=== PATIENT | male | born 1955 | race African-American/Black ===

== ENCOUNTER 2016-05-05 13:31 | Inpatient (IN) | payer OTHER ==
[2016-05-05] VITALS (8 sets, daily range): BP systolic 70–115; BP diastolic 50–75
[~2016-05-05] VITALS: Ht 180.3 cm; Wt 71.0 kg
[~2016-05-05 13:31] MED LIST: CHOL10003 PO; CYCL10TA2 PO; DOCU100C5 PO; FERR-26 PO; FURO20TA3 PO; LACT20SO PO; LIDO700A4 TP; MAGN400T3 PO; MORP30TA3 PO; MULT1TAB52 PO; OXYC10TA PO; OXYC5TAB PO; PROP10TA PO; SPIR25TA3 PO
[2016-05-05] MEDS ORDERED: ONDANSETRON PF 4 MG/2 ML VIAL. IV ONE (14:00)
[2016-05-05] MEDS ORDERED: IV NORMAL SALINE 1000ML BAG 500 ML IV ONE (14:00)
[2016-05-05 14:03] LABS: BASO % 0 % (0-3); EOS % 0 % (0-3); HEMOGLOBIN 13.6 g/dL (13.0-17.5); LYMPH # 0.5 x10^3/uL (1.0-4.8); LYMPH % 5 % (24-48); MEAN CORPUSCULAR HEMOGLOBIN 29 pg (25-35); MEAN CORPUSCULAR HGB CONC 33 g/dL (31-37); MEAN CORPUSCULAR VOLUME 87 fL (79-100); MONO % 10 % (0-9); NEUT % 85 % (31-73); PLATELET COUNT 129 x10^3/uL (140-400); RED CELL DISTRIBUTION WIDTH 16.4 % (11.5-14.5); WHITE BLOOD COUNT 10.1 x10^3/uL (4.0-11.0)
--- NOTE | 2016-05-05 14:09 | PHYS DOC ---
Past Medical History Past Medical History: Anemia, Hypertension, Hepatitis, Liver Disease Additional Past Medical Histor: ETOH cirrhosis, lumbar fx, ESOPHAGEAL VARICES, PANC/THROMB-OCYTOPEN Past Surgical History: Other Additional Past Surgical Histo: paracentesis -- UNKNOWN Alcohol Use: Sober Drug Use: None Adult General Chief Complaint Chief Complaint: SHORTNESS OF BREATH HPI HPI Patient is a 61 year old male who presents with shortness of breath and hypoxemia. According to EMS he was 80% on 4 L upon their arrival at the detention, he is on hospice but is full code. According to his records she has a history of hepatic failure, viral hepatitis, alcohol cirrhosis of the liver, portal hypertension, pancytopenia, thrombocytopenia, generalized edema. Patient is unresponsive at this time and able to contribute to any history. I did speak with his nurse at his facility was stated he's been refusing his lactulose for the last 2 days and becoming more altered every day. Review of Systems Review of Systems Unable to obtain review of systems Current Medications Current Medications Current Medications Medications (Trade) Dose Ordered Sig/Mina Start Time Stop Time Status Last Admin Dose Admin Ceftriaxone Sodium (Rocephin 1gm Ivpb For Omni) 50 ml @ 100 mls/hr 1X ONCE 05/05/16 15:15 05/05/16 15:44 Lactulose 30 gm 1X STAT 05/05/16 14:45 05/05/16 14:47 DC Ondansetron HCl (Zofran) 4 mg 1X ONCE 05/05/16 14:00 05/05/16 14:01 DC 05/05/16 14:04 4 MG Ondansetron HCl 4 mg 4 mg PRN Q8HRS PRN 05/05/16 15:00 05/06/16 14:59 Sodium Chloride (Iv Sodium Chloride 0.9% 1000ml Bag) 500 ml @ 1,000 mls/hr 1X ONCE 05/05/16 14:00 05/05/16 14:29 DC 05/05/16 14:02 1,000 MLS/HR Allergies Allergies Allergies Coded Allergies Type Severity Reaction Last Updated Verified No Known Drug Allergies 03/15/16 No Physical Exam Physical Exam Constitutional: Cachectic appearing in moderate distress. [] HENT: Atraumatic, bilateral external ears normal, oropharynx moist, no oral exudates, nose normal. [] Eyes: PERRLA, EOMI, scleral icterus, no discharge. [] Neck: no stridor. [] Cardiovascular:Heart rate regular rhythm, no murmur [] Lungs & Thorax: Bilateral breath sounds decreased Abdomen: Bowel sounds normal, abdomen distended, line in place in the right peritoneal area Skin: Warm, dry, no erythema, no rash. [] Back: No tenderness, no CVA tenderness. [] Extremities: No tenderness, no cyanosis, no clubbing Neurologic: Unresponsive Current Patient Data Vital Signs Vital Signs Date Time Temp Pulse Resp B/P Pulse Ox O2 Delivery O2 Flow Rate FiO2 05/05/16 15:00 73 118/74 94 BiPAP/CPAP 05/05/16 13:50 10 05/05/16 13:31 96.9 32 96.9 Lab Values Laboratory Tests Test 05/05/16 13:40 05/05/16 14:02 05/05/16 14:40 White Blood Count 10.1x10^3/uL (4.0-11.0) Red Blood Count 4.70x10^6/uL (4.30-5.70) Hemoglobin 13.6g/dL (13.0-17.5) Hematocrit 41.0% (39.0-53.0) Mean Corpuscular Volume 87fL (79-100) Mean Corpuscular Hemoglobin 29pg (25-35) Mean Corpuscular Hemoglobin Concent 33g/dL (31-37) Red Cell Distribution Width 16.4% (11.5-14.5) H Platelet Count 129x10^3/uL (140-400) #L Neutrophils (%) (Auto) 85% (31-73) H Lymphocytes (%) (Auto) 5% (24-48) L Monocytes (%) (Auto) 10% (0-9) H Eosinophils (%) (Auto) 0% (0-3) Basophils (%) (Auto) 0% (0-3) Neutrophils # (Auto) 8.6x10^3uL (1.8-7.7) H Lymphocytes # (Auto) 0.5x10^3/uL (1.0-4.8) L Monocytes # (Auto) 1.0x10^3/uL (0.0-1.1) Eosinophils # (Auto) 0.0x10^3/uL (0.0-0.7) Basophils # (Auto) 0.0x10^3/uL (0.0-0.2) Segmented Neutrophils % 77% (35-66) H Band Neutrophils % 9% (0-9) Lymphocytes % 8% (24-48) L Monocytes % 6% (0-10) Toxic Granulation Slight Platelet Estimate Adequate (ADEQUATE) Poikilocytosis Marked Anisocytosis Slight Ovalocytes Few João Cells Mod Schistocytes Mod RBC Morphology Bizarre Forms Few Prothrombin Time 19.1SEC (11.7-14.0) H Prothrombin Time INR 1.7 (0.8-1.1) H Magnesium Level 1.8mg/dL (1.8-2.4) Total Bilirubin 4.0mg/dL (0.2-1.0) H Direct Bilirubin 1.4mg/dL (0.0-0.2) H Aspartate Amino Transferase (AST) 162U/L (15-37) H Alanine Aminotransferase (ALT) 36U/L (16-63) Alkaline Phosphatase 222U/L (46-116) H Ammonia 349mcmol/L (11-34) H Creatine Kinase 103U/L (39-308) Creatine Kinase MB (Mass) 1.5ng/mL (0.0-3.6) Creatine Kinase MB Relative Index 1.5% (0-4) Troponin I Quantitative < 0.017ng/mL (0.000-0.055) KJ-Pto-Q-Type Natriuretic Peptide 111pg/mL (0-124) Total Protein 6.6g/dL (6.4-8.2) Albumin 2.1g/dL (3.4-5.0) L Lipase 55U/L (73-393) L Urine Collection Type Unknown Urine Color Jayda Urine Clarity Clear Urine pH 6.0 Urine Specific [place] 1.020 Urine Protein Negativemg/dL (NEG-TRACE) Urine Glucose (UA) Negativemg/dL (NEG) Urine Ketones (Stick) Tracemg/dL (NEG) Urine Blood Negative (NEG) Urine Nitrite Negative (NEG) Urine Bilirubin Moderate (NEG) Urine Urobilinogen Dipstick >=8.0mg/dL (0.2 mg/dL) Urine Leukocyte Esterase Trace (NEG) Urine RBC 0/HPF (0-2) Urine WBC 0/HPF (0-4) Urine Bacteria 0/HPF (0-FEW) Urine Hyaline Casts Moderate/HPF Urine Mucus Mod/LPF O2 Saturation 96% (92-99) Arterial Blood pH 7.51 (7.35-7.45) H Arterial Blood pCO2 at Patient Temp 32mmHg (35-46) L Arterial Blood pO2 at Patient Temp 79mmHg (65-108) Arterial Blood HCO3 25mmol/L (21-28) Arterial Blood Base Excess 2mmol/L (-3-3) FiO2 60 Laboratory Tests 05/05/16 13:40 EKG EKG EKG shows normal sinus rhythm with rate 77 beats were without any ST elevations or T-wave inversion in aVL, left axis deviation, incomplete right bundle branch block, QTC 445 ms, as interpreted by me. Radiology/Procedures Radiology/Procedures [facility] [address] [place] [address] IMAGING REPORT Signed PATIENT: TARAN MURILLO ACCOUNT: [id number] : 1955 LOCATION: ER AGE: 61 SEX: M EXAM STATUS: REG ER ORD. PHYSICIAN: JAIDEN PASTOR MD REASON: soa PROCEDURE: PORTABLE CHEST 1V Exam performed: One view chest. Indication: shortness of air Date of Service: 05/05/2016 3:36 PM Comparison: None available. Single AP upright portable view chest findings: Cardiomediastinal silhouette is within limits of normal. No acute infiltrates, effusion or pneumothorax is detected. The bony structures are normal. Impression: No acute cardiopulmonary process is detected. DICTATED and SIGNED BY: JAJA ORTIZ MD DATE: 05/05/16 1430 CC: JAIDEN PASTOR MD; RAND ARMENDARIZ MD ~ Impressions: Respiratory failure End stage liver disease Hyperammoniamia Course & Med Decision Making Course & Med Decision Making Pertinent Labs and Imaging studies reviewed. (See chart for details) Patient arrived hypoxic and requiring nonrebreather. He is placed on BiPAP and was hypotensive received 500 mL of normal saline. His breathing and blood pressure stabilized. Labs shows a pneumonia 300. I've ordered lactulose however he is nonresponsive and aspiration risk. Since he has ascites of wood and started Rocephin and case he might have SBP. He is admitted to the hospitalist, the patient is in critical condition at this time. The primary care physician did speak with family who does not want him intubated and are on their way to see him now. Spoke with the hospitalist who recommends putting down an NG tube for his lactulose. 55 minutes of critical care time was used on this patient excluding procedures. Dragon Disclaimer Dragon Disclaimer This electronic medical record was generated, in whole or in part, using a voice recognition dictation system. Departure Departure Impression: Primary Impression: Respiratory failure Disposition: ADMITTED INPATIENT Admitting Physician: Emilio Montilla Condition: GUARDED Referrals: RAND ARMENDARIZ MD (PCP) JAIDEN PASTOR MD May 05, 2016 14:08
[2016-05-05 14:15] LABS: BILIRUBIN,URINE MODERATE (NEG); GLUCOSE,URINE NEGATIVE (NEG); NITRITE,URINE NEGATIVE (NEG); PROTEIN,URINE NEGATIVE (NEG-TRACE); UROBILINOGEN,URINE >=8.0 mg/dL (0.2 mg/dL)
[2016-05-05 14:16] LABS: INR 1.7 (0.8-1.1); PROTHROMBIN TIME PATIENT 19.1 SEC (11.7-14.0)
[2016-05-05 14:23] LABS: ALBUMIN 2.1 g/dL (3.4-5.0); DIRECT BILIRUBIN 1.4 mg/dL (0.0-0.2); MAGNESIUM 1.8 mg/dL (1.8-2.4); TOTAL PROTEIN 6.6 g/dL (6.4-8.2)
[2016-05-05 14:23] LABS: BACTERIA,URINE 0 /HPF (0-FEW); RBC,URINE 0 /HPF (0-2); WBC,URINE 0 /HPF (0-4)
--- NOTE | 2016-05-05 14:28 | EKG ---
[facility] [address] [place] [address] Test Date: 2016-05-05 Test Time: 14:22:58 Pat Name: TARAN MURILLO Department: Room: Gender: M Horse Groomer: : 1955 Requested By: JAIDEN PASTOR Order Number: [id number] Reading MD: Carlito Cowart Measurements Intervals [place] Rate: 77 P: 90 LA: 146 QRS: -73 QRSD: 92 T: 66 QT: 392 QTc: 445 Interpretive Statements SINUS RHYTHM ABNORMAL LEFT AXIS DEVIATION R-S TRANSITION ZONE IN V LEADS DISPLACED TO THE RIGHT LEFT ANTERIOR FASCICULAR BLOCK INCOMPLETE RIGHT BUNDLE BRANCH BLOCK RI6.01 Unconfirmed report No previous ECG available for comparison Electronically Signed On 05-09-2016 13:49:26 FOOD SERVICE MANAGER by Carlito Cowart
--- NOTE | 2016-05-05 14:33 | RAD ---
Exam performed: One view chest. Indication: shortness of air Date of Service: 05/05/2016 3:36 PM Comparison: None available. Single AP upright portable view chest findings: Cardiomediastinal silhouette is within limits of normal. No acute infiltrates, effusion or pneumothorax is detected. The bony structures are normal. Impression: No acute cardiopulmonary process is detected.
[2016-05-05 14:45] LABS: CKMB INDEX 1.5 % (0-4); CKMB MASS 1.5 ng/mL (0.0-3.6)
[2016-05-05] MEDS ORDERED: LACTULOSE 20 GM/30 ML SOLUTION. PO STA (14:45)
[2016-05-05 14:54] LABS: ANISOCYTOSIS SLIGHT; PLT ESTIMATE ADEQUATE (ADEQUATE)
[2016-05-05 14:56] LABS: BURR CELLS MOD; OVALOCYTES FEW; SCHISTOCYTES MOD
[2016-05-05 14:58] LABS: POIKILOCYTOSIS MARKED; TOXIC GRANULATION SLIGHT
[2016-05-05] MEDS ORDERED: ONDANSETRON PF 4 MG/2 ML VIAL. IV PRN (15:00)
[2016-05-05 15:01] LABS: HCO3 ABG 25 mmol/L (21-28); PCO2 ABG 32 mmHg (35-46); PH ABG 7.51 (7.35-7.45); PO2 ABG 79 mmHg (65-108); SAT O2 ABG 96 % (92-99)
[2016-05-05 15:02] LABS: FIO2 ABG 60
[2016-05-05] MEDS ORDERED: CEFTRIAXONE 1GM IVPB FOR OMNI 50 ML IV ONE (15:15)
--- NOTE | 2016-05-05 15:25 | ACF ---
Admission Forms Criteria RESPIRATORY FAILURE [facility] Clinical Indications for Admission to Inpatient Care (Place 'X' for any and all applicable criteria): Hospital admission is needed for appropriate care of the patient because of acute respiratory failure or insufficiency as indicated by ANY ONE of the following(1)(2)(3)(4)(5)(6)(7)(8): [X]I. Mechanical ventilation needed (acute invasive or noninvasive) [ ]II. Severe ventilation deficit as indicated by ANY ONE of the following (9) [ ]a) Respiratory acidosis (pH less than 7.32 and partial pressure of carbon dioxide greater than 40 mm Hg (5.3 kPa)) [ ]b) Partial pressure of carbon dioxide greater than 44 mm Hg (5.9 kPa ) (new) [ ]c) Airflow measurements less than 25% of predicted (eg, peak expiratory flow rate less than 100 L/minute) [ ]d) Forced vital capacity less than 15 mL/kg of ideal body weight, or 50% decrease in vital capacity from baseline [ ]III. Noncardiac pulmonary edema not resolving with rapid emergency treatment (8) [ ]IV. Severe respiratory distress as indicated by ANY ONE of the following: [ ]a) Severe tachypnea (respiratory rate greater than 30, greater than 45 for 6-month-old, greater than 60 for ) [ ]b) Severe hypoxemia (partial pressure of oxygen less than 50 mm Hg ( 6.7 kPa) on greater than 50% oxygen or partial pressure of oxygen to FIO2 ratio less than 200) [ ]c) Mental status deterioration from respiratory disease [ ]V. Airway obstruction or inadequate protection [A](10)(11) The original [employer] content created by [employer] has been revised. The portions of the content which have been revised are identified through the use of italic text or in bold, and [employer] has neither reviewed nor approved the modified material. All other unmodified content is copyright [employer]. Please see references footnoted in the original [employer] edition 2016 Admission Criteria Met?: Yes CECILLE HERNÁNDEZ May 05, 2016 15:25
--- NOTE | 2016-05-05 17:19 | RAD ---
Portable chest, 05/05/2016: History: Verify NG tube placement A supine view the upper abdomen demonstrates an NG tube extending into the antral region of the stomach. There is moderate gaseous distention of the stomach. Gas is present in other loops of large and small bowel in a nonspecific pattern. Radiopaque gallstones are again noted in the right upper quadrant. IMPRESSION: The NG tube extends into the distal aspect of the stomach
[2016-05-05] MEDS ORDERED: AA 4.25%/CALCIUM/LYTES/D5W 1,000 ML IV PRN (17:30)
--- NOTE | 2016-05-05 17:32 | PDOC1 ---
History and Physical Family History Family History: Other Social History ALCOHOL: other Drugs: None Current Problem List Problem List Problems Medical Problems: (1) Respiratory failure Status: Acute Current Medications Current Medications Current Medications Medications (Trade) Dose Ordered Sig/Mina Start Time Stop Time Status Last Admin Dose Admin Amino Acids/ Electrolytes/ Dextrose (Clinimix E 4.25%-5% Solution) 1,000 ml @ 80 mls/hr [id number] PRN 05/05/16 17:30 Ceftriaxone Sodium 50 ml @ 100 mls/hr 1X ONCE 05/05/16 15:15 05/05/16 15:44 DC Lactulose 30 gm 1X STAT 05/05/16 14:45 05/05/16 14:47 DC Ondansetron HCl (Zofran) 4 mg 1X ONCE 05/05/16 14:00 05/05/16 14:01 DC 05/05/16 14:04 4 MG Ondansetron HCl 4 mg 4 mg PRN Q8HRS PRN 05/05/16 15:00 05/06/16 14:59 Sodium Chloride (Iv Sodium Chloride 0.9% 1000ml Bag) 500 ml @ 1,000 mls/hr 1X ONCE 05/05/16 14:00 05/05/16 14:29 DC 05/05/16 14:02 1,000 MLS/HR Allergies Allergies Allergies Coded Allergies Type Severity Reaction Last Updated Verified No Known Drug Allergies 03/15/16 No ROS Review of System not able to obtain due to acuity of his condition Physical Exam Physical Exam GEN.: on Bipap, opening eyes but not responding to questions. HEENT: Head is normocephalic, atraumatic, jaundice NECK: Supple. no jvd LUNGS: Clear to auscultation. HEART: RRR, S1, S2 present. Peripheral pulses intact ABDOMEN: distended, BS EXTREMITIES: mild edema, with clubbing NEUROLOGIC: encephalopathic PSYCHIATRIC: SKIN: dry skin, Vitals Vitals Vital Signs Date Time Temp Pulse Resp B/P Pulse Ox O2 Delivery O2 Flow Rate FiO2 05/05/16 17:00 100 BiPAP/CPAP 05/05/16 15:30 75 116/71 05/05/16 13:50 10 05/05/16 13:31 96.9 32 96.9 Labs Labs Laboratory Tests Test 05/05/16 13:40 05/05/16 14:02 05/05/16 14:40 White Blood Count 10.1x10^3/uL (4.0-11.0) Red Blood Count 4.70x10^6/uL (4.30-5.70) Hemoglobin 13.6g/dL (13.0-17.5) Hematocrit 41.0% (39.0-53.0) Mean Corpuscular Volume 87fL (79-100) Mean Corpuscular Hemoglobin 29pg (25-35) Mean Corpuscular Hemoglobin Concent 33g/dL (31-37) Red Cell Distribution Width 16.4% (11.5-14.5) Platelet Count 129x10^3/uL (140-400) Neutrophils (%) (Auto) 85% (31-73) Lymphocytes (%) (Auto) 5% (24-48) Monocytes (%) (Auto) 10% (0-9) Eosinophils (%) (Auto) 0% (0-3) Basophils (%) (Auto) 0% (0-3) Neutrophils # (Auto) 8.6x10^3uL (1.8-7.7) Lymphocytes # (Auto) 0.5x10^3/uL (1.0-4.8) Monocytes # (Auto) 1.0x10^3/uL (0.0-1.1) Eosinophils # (Auto) 0.0x10^3/uL (0.0-0.7) Basophils # (Auto) 0.0x10^3/uL (0.0-0.2) Segmented Neutrophils % 77% (35-66) Band Neutrophils % 9% (0-9) Lymphocytes % 8% (24-48) Monocytes % 6% (0-10) Toxic Granulation Slight Platelet Estimate Adequate (ADEQUATE) Poikilocytosis Marked Anisocytosis Slight Ovalocytes Few João Cells Mod Schistocytes Mod RBC Morphology Bizarre Forms Few Prothrombin Time 19.1SEC (11.7-14.0) Prothromb Time International Ratio 1.7 (0.8-1.1) Magnesium Level 1.8mg/dL (1.8-2.4) Total Bilirubin 4.0mg/dL (0.2-1.0) Direct Bilirubin 1.4mg/dL (0.0-0.2) Aspartate Amino Transf (AST/SGOT) 162U/L (15-37) Alanine Aminotransferase (ALT/SGPT) 36U/L (16-63) Alkaline Phosphatase 222U/L (46-116) Ammonia 349mcmol/L (11-34) Creatine Kinase 103U/L (39-308) Creatine Kinase MB (Mass) 1.5ng/mL (0.0-3.6) Creatine Kinase MB Relative Index 1.5% (0-4) Troponin I Quantitative < 0.017ng/mL (0.000-0.055) ZI-Til-Q-Type Natriuretic Peptide 111pg/mL (0-124) Total Protein 6.6g/dL (6.4-8.2) Albumin 2.1g/dL (3.4-5.0) Lipase 55U/L (73-393) Urine Collection Type Unknown Urine Color Jayda Urine Clarity Clear Urine pH 6.0 Urine Specific [place] 1.020 Urine Protein Negativemg/dL (NEG-TRACE) Urine Glucose (UA) Negativemg/dL (NEG) Urine Ketones (Stick) Tracemg/dL (NEG) Urine Blood Negative (NEG) Urine Nitrite Negative (NEG) Urine Bilirubin Moderate (NEG) Urine Urobilinogen Dipstick >=8.0mg/dL (0.2 mg/dL) Urine Leukocyte Esterase Trace (NEG) Urine RBC 0/HPF (0-2) Urine WBC 0/HPF (0-4) Urine Bacteria 0/HPF (0-FEW) Urine Hyaline Casts Moderate/HPF Urine Mucus Mod/LPF O2 Saturation 96% (92-99) Arterial Blood pH 7.51 (7.35-7.45) Arterial Blood pCO2 at Patient Temp 32mmHg (35-46) Arterial Blood pO2 at Patient Temp 79mmHg (65-108) Arterial Blood HCO3 25mmol/L (21-28) Arterial Blood Base Excess 2mmol/L (-3-3) FiO2 60 Laboratory Tests Test 05/05/16 13:40 05/05/16 14:02 05/05/16 14:40 White Blood Count 10.1x10^3/uL (4.0-11.0) Red Blood Count 4.70x10^6/uL (4.30-5.70) Hemoglobin 13.6g/dL (13.0-17.5) Hematocrit 41.0% (39.0-53.0) Mean Corpuscular Volume 87fL (79-100) Mean Corpuscular Hemoglobin 29pg (25-35) Mean Corpuscular Hemoglobin Concent 33g/dL (31-37) Red Cell Distribution Width 16.4% (11.5-14.5) Platelet Count 129x10^3/uL (140-400) Neutrophils (%) (Auto) 85% (31-73) Lymphocytes (%) (Auto) 5% (24-48) Monocytes (%) (Auto) 10% (0-9) Eosinophils (%) (Auto) 0% (0-3) Basophils (%) (Auto) 0% (0-3) Neutrophils # (Auto) 8.6x10^3uL (1.8-7.7) Lymphocytes # (Auto) 0.5x10^3/uL (1.0-4.8) Monocytes # (Auto) 1.0x10^3/uL (0.0-1.1) Eosinophils # (Auto) 0.0x10^3/uL (0.0-0.7) Basophils # (Auto) 0.0x10^3/uL (0.0-0.2) Segmented Neutrophils % 77% (35-66) Band Neutrophils % 9% (0-9) Lymphocytes % 8% (24-48) Monocytes % 6% (0-10) Toxic Granulation Slight Platelet Estimate Adequate (ADEQUATE) Poikilocytosis Marked Anisocytosis Slight Ovalocytes Few João Cells Mod Schistocytes Mod RBC Morphology Bizarre Forms Few Prothrombin Time 19.1SEC (11.7-14.0) Prothromb Time International Ratio 1.7 (0.8-1.1) Magnesium Level 1.8mg/dL (1.8-2.4) Total Bilirubin 4.0mg/dL (0.2-1.0) Direct Bilirubin 1.4mg/dL (0.0-0.2) Aspartate Amino Transf (AST/SGOT) 162U/L (15-37) Alanine Aminotransferase (ALT/SGPT) 36U/L (16-63) Alkaline Phosphatase 222U/L (46-116) Ammonia 349mcmol/L (11-34) Creatine Kinase 103U/L (39-308) Creatine Kinase MB (Mass) 1.5ng/mL (0.0-3.6) Creatine Kinase MB Relative Index 1.5% (0-4) Troponin I Quantitative < 0.017ng/mL (0.000-0.055) NA-Ttn-B-Type Natriuretic Peptide 111pg/mL (0-124) Total Protein 6.6g/dL (6.4-8.2) Albumin 2.1g/dL (3.4-5.0) Lipase 55U/L (73-393) Urine Collection Type Unknown Urine Color Jayda Urine Clarity Clear Urine pH 6.0 Urine Specific [place] 1.020 Urine Protein Negativemg/dL (NEG-TRACE) Urine Glucose (UA) Negativemg/dL (NEG) Urine Ketones (Stick) Tracemg/dL (NEG) Urine Blood Negative (NEG) Urine Nitrite Negative (NEG) Urine Bilirubin Moderate (NEG) Urine Urobilinogen Dipstick >=8.0mg/dL (0.2 mg/dL) Urine Leukocyte Esterase Trace (NEG) Urine RBC 0/HPF (0-2) Urine WBC 0/HPF (0-4) Urine Bacteria 0/HPF (0-FEW) Urine Hyaline Casts Moderate/HPF Urine Mucus Mod/LPF O2 Saturation 96% (92-99) Arterial Blood pH 7.51 (7.35-7.45) Arterial Blood pCO2 at Patient Temp 32mmHg (35-46) Arterial Blood pO2 at Patient Temp 79mmHg (65-108) Arterial Blood HCO3 25mmol/L (21-28) Arterial Blood Base Excess 2mmol/L (-3-3) FiO2 60 VTE Prophylaxis Ordered VTE Prophylaxis Devices: No VTE Pharmacological Prophylaxi: No NETTE CORONEL MD May 05, 2016 17:32
[2016-05-05 18:08] LABS: CALCIUM 9.3 mg/dL (8.5-10.1); CREATININE 0.8 mg/dL (0.7-1.3); GFR 118.5; POTASSIUM 5.4 mmol/L (3.5-5.1)
[2016-05-05] MEDS: MORPHINE SULFATE 2 MG/ML DISP.SYRIN. IV PRN ×2 (18:48→21:23)
[2016-05-05] MEDS: LORAZEPAM 2 MG/ML VIAL IV PRN (21:22)
--- NOTE | 2016-05-05 22:04 | ACF ---
Admission Forms Criteria Admission Criteria Met?: JOSE ALFREDO Vidal May 05, 2016 22:04
--- NOTE | 2016-05-05 22:56 | HP ---
ADMIT DATE: 05/05/2016 CHIEF COMPLAINT: Short of breath and altered mental status. HISTORY OF PRESENT ILLNESS: A 61-year-old male patient who was brought to the hospital for hypoxia from residential. Reportedly, the patient was in hospice for alcoholic liver disease and cirrhosis. Reportedly, he was not taking his lactulose for the last few days and he was encephalopathic upon his arrival. He has several comorbid conditions such as cirrhosis of the liver, portal hypertension, pancytopenia, thrombocytopenia and edema. I did speak with family members at bedside and mother is at bedside. She wants him to have DNR and DNI. She said she is the legal guardian; however, I could not verify at this time. The patient was here in the hospital one month ago; at that time, he was sent to hospice. At this time, I was told by the ER physician the patient is admitted to be treated medically and did not want any aggressive treatment. I would ask family members and palliative team to see together and discuss his goals of care. PAST MEDICAL HISTORY: Cirrhosis, lumbar fracture, esophageal varices, pancytopenia, anemia, hypertension, hepatitis, and liver disease. REVIEW OF SYSTEMS: Please see my electronic H and P. PHYSICAL EXAMINATION: Please see my electronic H and P. LABORATORY FINDINGS: WBC 10.2, hemoglobin is 13.6, MCV is 87, platelets 129. Magnesium 1.8, total bilirubin 4.0, direct bilirubin 1.4, AST is 162, ALT 36, alkaline phosphatase 222, ammonia is 349, albumin is 2.1, lipase is 55. Blood gas, pH is 7.51, pCO2 of 32, pO2 of 79, BiPAP is 25 FiO2 of 60. Urine, pH is 6, protein is negative, glucose is negative, blood is negative, nitrites negative, leukocyte esterase is trace. IMAGING STUDIES: On the chest x-ray, no acute cardiopulmonary process seen. KUB: NG tube extended to the distal aspect of the stomach. ASSESSMENT AND PLAN: 1. Hepatic encephalopathy, present on admission. 2. Respiratory failure, hypoxic. 3. End-stage liver disease with cirrhosis and esophageal varices. 4. Thrombocytopenia. 5. Anemia. 6. Portal hypertension. 7. History of lumbar L3 compression fracture. 8. Severe protein malnutrition. PLAN: 1. The patient is being admitted to Critical Care Unit. Currently, he is on BiPAP and I will repeat his ABGs and consult Pulmonology. 2. He was started on lactulose. We will monitor his response and recheck ammonia. 3. We will consult Gastroenterology. 4. Family members at bedside, mother and sister. All questions answered. 5. Also, I will consult palliative team for further discussion about goals of care. The patient's prognosis is very, very poor. I do not think his quality of life will change with aggressive management, I agree with hospice care. At this time, I will treat him medically. 6. I did discuss with mother and she wants him to have DNR/DNI. 7. Repeat labs, CBC and BMP in the a.m. and continue procalamine 80 mL per hour. 8. Awaiting gastroenterology and other sub-speciality input. No DVT prophylaxis due to thrombocytopenia. 9. Prognosis is very poor. 10. Critical care time is less than 30 minutes. NETTE CORONEL MD DR: ROLANDO/juan JOB#: [id number] / [id number] JASS
[2016-05-06] VITALS (19 sets, daily range): BP systolic 63–101; BP diastolic 45–61
[2016-05-06] MEDS: MORPHINE SULFATE 2 MG/ML DISP.SYRIN. IV PRN ×5 (00:07→22:19)
[2016-05-06] MEDS: LORAZEPAM 2 MG/ML VIAL IV PRN (04:03)
[2016-05-06 05:13] LABS: BASO % 0 % (0-3); EOS % 0 % (0-3); HEMATOCRIT 39.1 % (39.0-53.0); HEMOGLOBIN 12.9 g/dL (13.0-17.5); LYMPH # 0.5 x10^3/uL (1.0-4.8); LYMPH % 5 % (24-48); MEAN CORPUSCULAR HEMOGLOBIN 29 pg (25-35); MEAN CORPUSCULAR HGB CONC 33 g/dL (31-37); MEAN CORPUSCULAR VOLUME 88 fL (79-100); MONO % 9 % (0-9); NEUT % 85 % (31-73); PLATELET COUNT 99 x10^3/uL (140-400); RED BLOOD COUNT 4.46 x10^6/uL (4.30-5.70); RED CELL DISTRIBUTION WIDTH 16.5 % (11.5-14.5); WHITE BLOOD COUNT 10.6 x10^3/uL (4.0-11.0)
[2016-05-06 05:24] LABS: CALCIUM 9.2 mg/dL (8.5-10.1); CREATININE 1.3 mg/dL (0.7-1.3); GFR 67.7; POTASSIUM 5.1 mmol/L (3.5-5.1)
--- NOTE | 2016-05-06 09:05 | PDOC ---
Subjective: Subjective: See GI consult 03/16/16. Brought to ER 05/05/16 w/ hypoxia, AMS. On hospice w/ ESLD. On lactulose, Lasix, Aldactone at detention. Admitted to ICU. Objective: Objective: Ammonia 349, bili 4, Alk Phos 222, plt 99, INR 1.7. Vital Signs: Vital Signs Date Time Temp Pulse Resp B/P Pulse Ox O2 Delivery O2 Flow Rate FiO2 05/06/16 08:00 98.9 100 18 73/56 96 Nasal Cannula 2.0 98.9 Labs: Laboratory Tests Test 05/05/16 13:40 05/05/16 13:50 05/05/16 14:02 05/05/16 14:40 White Blood Count 10.1x10^3/uL Red Blood Count 4.70x10^6/uL Hemoglobin 13.6g/dL Hematocrit 41.0% Mean Corpuscular Volume 87fL Mean Corpuscular Hemoglobin 29pg Mean Corpuscular Hemoglobin Concent 33g/dL Red Cell Distribution Width 16.4% Platelet Count 129x10^3/uL Neutrophils (%) (Auto) 85% Lymphocytes (%) (Auto) 5% Monocytes (%) (Auto) 10% Eosinophils (%) (Auto) 0% Basophils (%) (Auto) 0% Neutrophils # (Auto) 8.6x10^3uL Lymphocytes # (Auto) 0.5x10^3/uL Monocytes # (Auto) 1.0x10^3/uL Eosinophils # (Auto) 0.0x10^3/uL Basophils # (Auto) 0.0x10^3/uL Segmented Neutrophils % 77% Band Neutrophils % 9% Lymphocytes % 8% Monocytes % 6% Toxic Granulation Slight Platelet Estimate Adequate Poikilocytosis Marked Anisocytosis Slight Ovalocytes Few [place] Cells Mod Schistocytes Mod RBC Morphology Bizarre Forms Few Prothrombin Time 19.1SEC Prothromb Time International Ratio 1.7 Magnesium Level 1.8mg/dL Total Bilirubin 4.0mg/dL Direct Bilirubin 1.4mg/dL Aspartate Amino Transf (AST/SGOT) 162U/L Alanine Aminotransferase (ALT/SGPT) 36U/L Alkaline Phosphatase 222U/L Ammonia 349mcmol/L Creatine Kinase 103U/L Creatine Kinase MB (Mass) 1.5ng/mL Creatine Kinase MB Relative Index 1.5% Troponin I Quantitative < 0.017ng/mL JW-[id number]-M-Type Natriuretic Peptide 111pg/mL Total Protein 6.6g/dL Albumin 2.1g/dL Lipase 55U/L Sodium Level 130mmol/L Potassium Level 5.4mmol/L Chloride Level 94mmol/L Carbon Dioxide Level 25mmol/L Anion Gap 11 Blood Urea Nitrogen 30mg/dL Creatinine 0.8mg/dL Estimated GFR (Cockcroft-Gault) 118.5 Glucose Level 116mg/dL Calcium Level 9.3mg/dL Urine Collection Type Unknown Urine Color Jayda Urine Clarity Clear Urine pH 6.0 Urine Specific [place] 1.020 Urine Protein Negativemg/dL Urine Glucose (UA) Negativemg/dL Urine Ketones (Stick) Tracemg/dL Urine Blood Negative Urine Nitrite Negative Urine Bilirubin Moderate Urine Urobilinogen Dipstick >=8.0mg/dL Urine Leukocyte Esterase Trace Urine RBC 0/HPF Urine WBC 0/HPF Urine Bacteria 0/HPF Urine Hyaline Casts Moderate/HPF Urine Mucus Mod/LPF O2 Saturation 96% Arterial Blood pH 7.51 Arterial Blood pCO2 at Patient Temp 32mmHg Arterial Blood pO2 at Patient Temp 79mmHg Arterial Blood HCO3 25mmol/L Arterial Blood Base Excess 2mmol/L FiO2 60 Test 05/05/16 17:00 05/06/16 04:45 Nasal Screen MRSA (PCR) Positive White Blood Count 10.6x10^3/uL Red Blood Count 4.46x10^6/uL Hemoglobin 12.9g/dL Hematocrit 39.1% Mean Corpuscular Volume 88fL Mean Corpuscular Hemoglobin 29pg Mean Corpuscular Hemoglobin Concent 33g/dL Red Cell Distribution Width 16.5% Platelet Count 99x10^3/uL Neutrophils (%) (Auto) 85% Lymphocytes (%) (Auto) 5% Monocytes (%) (Auto) 9% Eosinophils (%) (Auto) 0% Basophils (%) (Auto) 0% Neutrophils # (Auto) 9.1x10^3uL Lymphocytes # (Auto) 0.5x10^3/uL Monocytes # (Auto) 1.0x10^3/uL Eosinophils # (Auto) 0.0x10^3/uL Basophils # (Auto) 0.0x10^3/uL Sodium Level 134mmol/L Potassium Level 5.1mmol/L Chloride Level 99mmol/L Carbon Dioxide Level 29mmol/L Anion Gap 6 Blood Urea Nitrogen 39mg/dL Creatinine 1.3mg/dL Estimated GFR (Cockcroft-Gault) 67.7 Glucose Level 114mg/dL Calcium Level 9.2mg/dL PE: GEN: ill LUNGS: nasal cannula HEART: tachycardic ABD: distended/ascites, PleurX catheter RUQ NEURO/PSYCH: unresponsive A/P: Cirrhosis, ascites, hyperammonemia -PleurX catheter in place (as requested by [facility] 03/2016) -h/o alcoholism, h/o Hep C, h/o varices/banding, portal hypertension -- D/w RN - agree w/ comfort care. Thanks for consult - no additional GI recs. ANGELI MCDONOUGH May 06, 2016 09:05
--- NOTE | 2016-05-06 11:28 | PDOC ---
PROGRESS NOTES Chief Complaint Chief Complaint - Respiratory failure --ETOH Cirrhosis - Hyperammonemia - Portal hypertension - Pancytopenia - Encephalopathy History of Present Illness History of Present Illness Patient is unresponsive at the time of evaluation, has hyperammonemia encephalopathy, respiratory failure, family is at the bedside, plan of care is discussed with family members and RN. Vitals Vitals Vital Signs Date Time Temp Pulse Resp B/P Pulse Ox O2 Delivery O2 Flow Rate FiO2 05/06/16 11:00 104 19 71/52 98 Nasal Cannula 2.0 05/06/16 08:00 98.9 98.9 Physical Exam Lungs: Clear Labs LABS Laboratory Tests Test 05/05/16 13:40 05/05/16 13:50 05/05/16 14:02 05/05/16 14:40 White Blood Count 10.1x10^3/uL (4.0-11.0) Red Blood Count 4.70x10^6/uL (4.30-5.70) Hemoglobin 13.6g/dL (13.0-17.5) Hematocrit 41.0% (39.0-53.0) Mean Corpuscular Volume 87fL (79-100) Mean Corpuscular Hemoglobin 29pg (25-35) Mean Corpuscular Hemoglobin Concent 33g/dL (31-37) Red Cell Distribution Width 16.4% (11.5-14.5) Platelet Count 129x10^3/uL (140-400) Neutrophils (%) (Auto) 85% (31-73) Lymphocytes (%) (Auto) 5% (24-48) Monocytes (%) (Auto) 10% (0-9) Eosinophils (%) (Auto) 0% (0-3) Basophils (%) (Auto) 0% (0-3) Neutrophils # (Auto) 8.6x10^3uL (1.8-7.7) Lymphocytes # (Auto) 0.5x10^3/uL (1.0-4.8) Monocytes # (Auto) 1.0x10^3/uL (0.0-1.1) Eosinophils # (Auto) 0.0x10^3/uL (0.0-0.7) Basophils # (Auto) 0.0x10^3/uL (0.0-0.2) Segmented Neutrophils % 77% (35-66) Band Neutrophils % 9% (0-9) Lymphocytes % 8% (24-48) Monocytes % 6% (0-10) Toxic Granulation Slight Platelet Estimate Adequate (ADEQUATE) Poikilocytosis Marked Anisocytosis Slight Ovalocytes Few [place] Cells Mod Schistocytes Mod RBC Morphology Bizarre Forms Few Prothrombin Time 19.1SEC (11.7-14.0) Prothromb Time International Ratio 1.7 (0.8-1.1) Magnesium Level 1.8mg/dL (1.8-2.4) Total Bilirubin 4.0mg/dL (0.2-1.0) Direct Bilirubin 1.4mg/dL (0.0-0.2) Aspartate Amino Transf (AST/SGOT) 162U/L (15-37) Alanine Aminotransferase (ALT/SGPT) 36U/L (16-63) Alkaline Phosphatase 222U/L (46-116) Ammonia 349mcmol/L (11-34) Creatine Kinase 103U/L (39-308) Creatine Kinase MB (Mass) 1.5ng/mL (0.0-3.6) Creatine Kinase MB Relative Index 1.5% (0-4) Troponin I Quantitative < 0.017ng/mL (0.000-0.055) MS-Qwf-I-Type Natriuretic Peptide 111pg/mL (0-124) Total Protein 6.6g/dL (6.4-8.2) Albumin 2.1g/dL (3.4-5.0) Lipase 55U/L (73-393) Sodium Level 130mmol/L (136-145) Potassium Level 5.4mmol/L (3.5-5.1) Chloride Level 94mmol/L (98-107) Carbon Dioxide Level 25mmol/L (21-32) Anion Gap 11 (6-14) Blood Urea Nitrogen 30mg/dL (8-26) Creatinine 0.8mg/dL (0.7-1.3) Estimated GFR (Cockcroft-Gault) 118.5 Glucose Level 116mg/dL (70-99) Calcium Level 9.3mg/dL (8.5-10.1) Urine Collection Type Unknown Urine Color Jayda Urine Clarity Clear Urine pH 6.0 Urine Specific [place] 1.020 Urine Protein Negativemg/dL (NEG-TRACE) Urine Glucose (UA) Negativemg/dL (NEG) Urine Ketones (Stick) Tracemg/dL (NEG) Urine Blood Negative (NEG) Urine Nitrite Negative (NEG) Urine Bilirubin Moderate (NEG) Urine Urobilinogen Dipstick >=8.0mg/dL (0.2 mg/dL) Urine Leukocyte Esterase Trace (NEG) Urine RBC 0/HPF (0-2) Urine WBC 0/HPF (0-4) Urine Bacteria 0/HPF (0-FEW) Urine Hyaline Casts Moderate/HPF Urine Mucus Mod/LPF O2 Saturation 96% (92-99) Arterial Blood pH 7.51 (7.35-7.45) Arterial Blood pCO2 at Patient Temp 32mmHg (35-46) Arterial Blood pO2 at Patient Temp 79mmHg (65-108) Arterial Blood HCO3 25mmol/L (21-28) Arterial Blood Base Excess 2mmol/L (-3-3) FiO2 60 Test 05/05/16 17:00 05/06/16 04:45 Nasal Screen MRSA (PCR) Positive (Negative) White Blood Count 10.6x10^3/uL (4.0-11.0) Red Blood Count 4.46x10^6/uL (4.30-5.70) Hemoglobin 12.9g/dL (13.0-17.5) Hematocrit 39.1% (39.0-53.0) Mean Corpuscular Volume 88fL (79-100) Mean Corpuscular Hemoglobin 29pg (25-35) Mean Corpuscular Hemoglobin Concent 33g/dL (31-37) Red Cell Distribution Width 16.5% (11.5-14.5) Platelet Count 99x10^3/uL (140-400) Neutrophils (%) (Auto) 85% (31-73) Lymphocytes (%) (Auto) 5% (24-48) Monocytes (%) (Auto) 9% (0-9) Eosinophils (%) (Auto) 0% (0-3) Basophils (%) (Auto) 0% (0-3) Neutrophils # (Auto) 9.1x10^3uL (1.8-7.7) Lymphocytes # (Auto) 0.5x10^3/uL (1.0-4.8) Monocytes # (Auto) 1.0x10^3/uL (0.0-1.1) Eosinophils # (Auto) 0.0x10^3/uL (0.0-0.7) Basophils # (Auto) 0.0x10^3/uL (0.0-0.2) Sodium Level 134mmol/L (136-145) Potassium Level 5.1mmol/L (3.5-5.1) Chloride Level 99mmol/L (98-107) Carbon Dioxide Level 29mmol/L (21-32) Anion Gap 6 (6-14) Blood Urea Nitrogen 39mg/dL (8-26) Creatinine 1.3mg/dL (0.7-1.3) Estimated GFR (Cockcroft-Gault) 67.7 Glucose Level 114mg/dL (70-99) Calcium Level 9.2mg/dL (8.5-10.1) Review of Systems Review of Systems Unresponsive, respiratory distress, oxygen through nasal canula, ascites, pleurX catheter RUQ. Assessment and Plan Assessmemt and Plan ASSESSMENT: - Respiratory failure --ETOH Cirrhosis - Hyperammonemia - Portal hypertension - Pancytopenia - Encephalopathy PLAN: - Continue care per ICU protocol - Check routine labs - Ammonia level - 349, INR - 1.7, continue lactulose, clinimix, ceftriaxone, zofran, and ivf - appreciate subspecialities inputs and recommendations - plan discussed with family and RN Problems Medical Problems: (1) Respiratory failure Status: Acute Problems: Comment Review of Relevant I have reviewed the following items berta (where applicable) has been applied. Labs Laboratory Tests Test 05/05/16 13:40 05/05/16 13:50 05/05/16 14:02 05/05/16 14:40 White Blood Count 10.1x10^3/uL (4.0-11.0) Red Blood Count 4.70x10^6/uL (4.30-5.70) Hemoglobin 13.6g/dL (13.0-17.5) Hematocrit 41.0% (39.0-53.0) Mean Corpuscular Volume 87fL (79-100) Mean Corpuscular Hemoglobin 29pg (25-35) Mean Corpuscular Hemoglobin Concent 33g/dL (31-37) Red Cell Distribution Width 16.4% (11.5-14.5) Platelet Count 129x10^3/uL (140-400) Neutrophils (%) (Auto) 85% (31-73) Lymphocytes (%) (Auto) 5% (24-48) Monocytes (%) (Auto) 10% (0-9) Eosinophils (%) (Auto) 0% (0-3) Basophils (%) (Auto) 0% (0-3) Neutrophils # (Auto) 8.6x10^3uL (1.8-7.7) Lymphocytes # (Auto) 0.5x10^3/uL (1.0-4.8) Monocytes # (Auto) 1.0x10^3/uL (0.0-1.1) Eosinophils # (Auto) 0.0x10^3/uL (0.0-0.7) Basophils # (Auto) 0.0x10^3/uL (0.0-0.2) Segmented Neutrophils % 77% (35-66) Band Neutrophils % 9% (0-9) Lymphocytes % 8% (24-48) Monocytes % 6% (0-10) Toxic Granulation Slight Platelet Estimate Adequate (ADEQUATE) Poikilocytosis Marked Anisocytosis Slight Ovalocytes Few [place] Cells Mod Schistocytes Mod RBC Morphology Bizarre Forms Few Prothrombin Time 19.1SEC (11.7-14.0) Prothromb Time International Ratio 1.7 (0.8-1.1) Magnesium Level 1.8mg/dL (1.8-2.4) Total Bilirubin 4.0mg/dL (0.2-1.0) Direct Bilirubin 1.4mg/dL (0.0-0.2) Aspartate Amino Transf (AST/SGOT) 162U/L (15-37) Alanine Aminotransferase (ALT/SGPT) 36U/L (16-63) Alkaline Phosphatase 222U/L (46-116) Ammonia 349mcmol/L (11-34) Creatine Kinase 103U/L (39-308) Creatine Kinase MB (Mass) 1.5ng/mL (0.0-3.6) Creatine Kinase MB Relative Index 1.5% (0-4) Troponin I Quantitative < 0.017ng/mL (0.000-0.055) LV-Mpk-T-Type Natriuretic Peptide 111pg/mL (0-124) Total Protein 6.6g/dL (6.4-8.2) Albumin 2.1g/dL (3.4-5.0) Lipase 55U/L (73-393) Sodium Level 130mmol/L (136-145) Potassium Level 5.4mmol/L (3.5-5.1) Chloride Level 94mmol/L (98-107) Carbon Dioxide Level 25mmol/L (21-32) Anion Gap 11 (6-14) Blood Urea Nitrogen 30mg/dL (8-26) Creatinine 0.8mg/dL (0.7-1.3) Estimated GFR (Cockcroft-Gault) 118.5 Glucose Level 116mg/dL (70-99) Calcium Level 9.3mg/dL (8.5-10.1) Urine Collection Type Unknown Urine Color Jayda Urine Clarity Clear Urine pH 6.0 Urine Specific [place] 1.020 Urine Protein Negativemg/dL (NEG-TRACE) Urine Glucose (UA) Negativemg/dL (NEG) Urine Ketones (Stick) Tracemg/dL (NEG) Urine Blood Negative (NEG) Urine Nitrite Negative (NEG) Urine Bilirubin Moderate (NEG) Urine Urobilinogen Dipstick >=8.0mg/dL (0.2 mg/dL) Urine Leukocyte Esterase Trace (NEG) Urine RBC 0/HPF (0-2) Urine WBC 0/HPF (0-4) Urine Bacteria 0/HPF (0-FEW) Urine Hyaline Casts Moderate/HPF Urine Mucus Mod/LPF O2 Saturation 96% (92-99) Arterial Blood pH 7.51 (7.35-7.45) Arterial Blood pCO2 at Patient Temp 32mmHg (35-46) Arterial Blood pO2 at Patient Temp 79mmHg (65-108) Arterial Blood HCO3 25mmol/L (21-28) Arterial Blood Base Excess 2mmol/L (-3-3) FiO2 60 Test 05/05/16 17:00 05/06/16 04:45 Nasal Screen MRSA (PCR) Positive (Negative) White Blood Count 10.6x10^3/uL (4.0-11.0) Red Blood Count 4.46x10^6/uL (4.30-5.70) Hemoglobin 12.9g/dL (13.0-17.5) Hematocrit 39.1% (39.0-53.0) Mean Corpuscular Volume 88fL (79-100) Mean Corpuscular Hemoglobin 29pg (25-35) Mean Corpuscular Hemoglobin Concent 33g/dL (31-37) Red Cell Distribution Width 16.5% (11.5-14.5) Platelet Count 99x10^3/uL (140-400) Neutrophils (%) (Auto) 85% (31-73) Lymphocytes (%) (Auto) 5% (24-48) Monocytes (%) (Auto) 9% (0-9) Eosinophils (%) (Auto) 0% (0-3) Basophils (%) (Auto) 0% (0-3) Neutrophils # (Auto) 9.1x10^3uL (1.8-7.7) Lymphocytes # (Auto) 0.5x10^3/uL (1.0-4.8) Monocytes # (Auto) 1.0x10^3/uL (0.0-1.1) Eosinophils # (Auto) 0.0x10^3/uL (0.0-0.7) Basophils # (Auto) 0.0x10^3/uL (0.0-0.2) Sodium Level 134mmol/L (136-145) Potassium Level 5.1mmol/L (3.5-5.1) Chloride Level 99mmol/L (98-107) Carbon Dioxide Level 29mmol/L (21-32) Anion Gap 6 (6-14) Blood Urea Nitrogen 39mg/dL (8-26) Creatinine 1.3mg/dL (0.7-1.3) Estimated GFR (Cockcroft-Gault) 67.7 Glucose Level 114mg/dL (70-99) Calcium Level 9.2mg/dL (8.5-10.1) Laboratory Tests Test 05/05/16 13:40 05/05/16 13:50 05/05/16 14:02 05/05/16 14:40 White Blood Count 10.1x10^3/uL (4.0-11.0) Red Blood Count 4.70x10^6/uL (4.30-5.70) Hemoglobin 13.6g/dL (13.0-17.5) Hematocrit 41.0% (39.0-53.0) Mean Corpuscular Volume 87fL (79-100) Mean Corpuscular Hemoglobin 29pg (25-35) Mean Corpuscular Hemoglobin Concent 33g/dL (31-37) Red Cell Distribution Width 16.4% (11.5-14.5) Platelet Count 129x10^3/uL (140-400) Neutrophils (%) (Auto) 85% (31-73) Lymphocytes (%) (Auto) 5% (24-48) Monocytes (%) (Auto) 10% (0-9) Eosinophils (%) (Auto) 0% (0-3) Basophils (%) (Auto) 0% (0-3) Neutrophils # (Auto) 8.6x10^3uL (1.8-7.7) Lymphocytes # (Auto) 0.5x10^3/uL (1.0-4.8) Monocytes # (Auto) 1.0x10^3/uL (0.0-1.1) Eosinophils # (Auto) 0.0x10^3/uL (0.0-0.7) Basophils # (Auto) 0.0x10^3/uL (0.0-0.2) Segmented Neutrophils % 77% (35-66) Band Neutrophils % 9% (0-9) Lymphocytes % 8% (24-48) Monocytes % 6% (0-10) Toxic Granulation Slight Platelet Estimate Adequate (ADEQUATE) Poikilocytosis Marked Anisocytosis Slight Ovalocytes Few [place] Cells Mod Schistocytes Mod RBC Morphology Bizarre Forms Few Prothrombin Time 19.1SEC (11.7-14.0) Prothromb Time International Ratio 1.7 (0.8-1.1) Magnesium Level 1.8mg/dL (1.8-2.4) Total Bilirubin 4.0mg/dL (0.2-1.0) Direct Bilirubin 1.4mg/dL (0.0-0.2) Aspartate Amino Transf (AST/SGOT) 162U/L (15-37) Alanine Aminotransferase (ALT/SGPT) 36U/L (16-63) Alkaline Phosphatase 222U/L (46-116) Ammonia 349mcmol/L (11-34) Creatine Kinase 103U/L (39-308) Creatine Kinase MB (Mass) 1.5ng/mL (0.0-3.6) Creatine Kinase MB Relative Index 1.5% (0-4) Troponin I Quantitative < 0.017ng/mL (0.000-0.055) RC-Soq-D-Type Natriuretic Peptide 111pg/mL (0-124) Total Protein 6.6g/dL (6.4-8.2) Albumin 2.1g/dL (3.4-5.0) Lipase 55U/L (73-393) Sodium Level 130mmol/L (136-145) Potassium Level 5.4mmol/L (3.5-5.1) Chloride Level 94mmol/L (98-107) Carbon Dioxide Level 25mmol/L (21-32) Anion Gap 11 (6-14) Blood Urea Nitrogen 30mg/dL (8-26) Creatinine 0.8mg/dL (0.7-1.3) Estimated GFR (Cockcroft-Gault) 118.5 Glucose Level 116mg/dL (70-99) Calcium Level 9.3mg/dL (8.5-10.1) Urine Collection Type Unknown Urine Color Jayda Urine Clarity Clear Urine pH 6.0 Urine Specific [place] 1.020 Urine Protein Negativemg/dL (NEG-TRACE) Urine Glucose (UA) Negativemg/dL (NEG) Urine Ketones (Stick) Tracemg/dL (NEG) Urine Blood Negative (NEG) Urine Nitrite Negative (NEG) Urine Bilirubin Moderate (NEG) Urine Urobilinogen Dipstick >=8.0mg/dL (0.2 mg/dL) Urine Leukocyte Esterase Trace (NEG) Urine RBC 0/HPF (0-2) Urine WBC 0/HPF (0-4) Urine Bacteria 0/HPF (0-FEW) Urine Hyaline Casts Moderate/HPF Urine Mucus Mod/LPF O2 Saturation 96% (92-99) Arterial Blood pH 7.51 (7.35-7.45) Arterial Blood pCO2 at Patient Temp 32mmHg (35-46) Arterial Blood pO2 at Patient Temp 79mmHg (65-108) Arterial Blood HCO3 25mmol/L (21-28) Arterial Blood Base Excess 2mmol/L (-3-3) FiO2 60 Test 05/05/16 17:00 05/06/16 04:45 Nasal Screen MRSA (PCR) Positive (Negative) White Blood Count 10.6x10^3/uL (4.0-11.0) Red Blood Count 4.46x10^6/uL (4.30-5.70) Hemoglobin 12.9g/dL (13.0-17.5) Hematocrit 39.1% (39.0-53.0) Mean Corpuscular Volume 88fL (79-100) Mean Corpuscular Hemoglobin 29pg (25-35) Mean Corpuscular Hemoglobin Concent 33g/dL (31-37) Red Cell Distribution Width 16.5% (11.5-14.5) Platelet Count 99x10^3/uL (140-400) Neutrophils (%) (Auto) 85% (31-73) Lymphocytes (%) (Auto) 5% (24-48) Monocytes (%) (Auto) 9% (0-9) Eosinophils (%) (Auto) 0% (0-3) Basophils (%) (Auto) 0% (0-3) Neutrophils # (Auto) 9.1x10^3uL (1.8-7.7) Lymphocytes # (Auto) 0.5x10^3/uL (1.0-4.8) Monocytes # (Auto) 1.0x10^3/uL (0.0-1.1) Eosinophils # (Auto) 0.0x10^3/uL (0.0-0.7) Basophils # (Auto) 0.0x10^3/uL (0.0-0.2) Sodium Level 134mmol/L (136-145) Potassium Level 5.1mmol/L (3.5-5.1) Chloride Level 99mmol/L (98-107) Carbon Dioxide Level 29mmol/L (21-32) Anion Gap 6 (6-14) Blood Urea Nitrogen 39mg/dL (8-26) Creatinine 1.3mg/dL (0.7-1.3) Estimated GFR (Cockcroft-Gault) 67.7 Glucose Level 114mg/dL (70-99) Calcium Level 9.2mg/dL (8.5-10.1) Medications Current Medications Sodium Chloride (Iv Sodium Chloride 0.9% 1000ml Bag) 500 ml @ 1,000 mls/hr 1X ONCE IV Last administered on 05/05/16t 14:02; Start 05/05/16 at 14:00; Stop at 18:36; Status DC Ondansetron HCl (Zofran) 4 mg 1X ONCE IV Last administered on 05/05/16 14:04; Start 05/05/16 at 14:00; Stop 05/05/16 at 18:36; Status DC Lactulose 30 gm 1X STAT PO ; Start 05/05/16 at 14:45; Stop 05/05/16 at 18:37; Status DC Ondansetron HCl 4 mg 4 mg PRN Q8HRS PRN IV NAUSEA/VOMITING; Start 05/05/16 at 15 :00; Stop 05/06/16 at 14:59 Ceftriaxone Sodium 50 ml @ 100 mls/hr 1X ONCE IV ; Start 05/05/16 at 15:15; Stop 05/05/16 at 18:37; Status DC Amino Acids/ Electrolytes/ Dextrose (Clinimix E 4.25%-5% Solution) 1,000 ml @ 80 mls/hr [id number] PRN IV .; Start 05/05/16 at 17:30; Stop 05/05/16 at 18:37; Status DC Morphine Sulfate 2 mg PRN Q2HR PRN IV PAIN Last administered on 05/06/16 09:31 ; Start 05/05/16 at 18:45 Lorazepam (Ativan) 2 mg PRN Q4HRS PRN IV ANXIETY / AGITATION Last administered on 05/06/16 04:03; Start 05/05/16 at 18:45 Active Scripts Active Oxycodone Hcl 5 Mg Tablet 10 Mg PO PRN Q4HRS PRN Morphine Sulfate Er (Morphine Sulfate) 30 Mg Tablet.er 30 Mg PO BID Lactulose 20 Gm/30 Ml Solution 20 Gm PO BID 30 Days Cyclobenzaprine Hcl 10 Mg Tablet 10 Mg PO PRN Q6HRS PRN Reported Spironolactone 25 Mg Tablet 2 Tab PO DAILY Propranolol Hcl 10 Mg Tablet 1 Tab PO BID Multivitamins (Multivitamin) 1 Each Tablet 1 Tab PO DAILY Magnesium Oxide 400 Mg Tablet 2 Tab PO BID Lidoderm (Lidocaine) 700 Mg Adh..patch 1 Patch TP DAILY Furosemide 20 Mg Tablet 1 Tab PO DAILY Ferrous Sulfate 325 Mg Tablet 1 Tab PO DAILY Docusate Sodium 100 Mg Capsule 2 Cap PO PRN BID PRN Vitamin D3 (Cholecalciferol (Vitamin D3)) 1,000 Unit Tablet 1 Tab PO DAILY Vitals/I & O Vital Sign - Last 24 Hours 05/05/16 05/05/16 05/05/16 05/05/16 13:31 13:40 13:50 14:00 Temp 96.9 96.9 Pulse 75 76 75 67 Resp 32 B/P 94/67 114/73 101/68 112/73 Pulse Ox 98 89 86 98 O2 Delivery NonRebreather Mask NonRebreather Mask NonRebreather Mask BiPAP/CPAP O2 Flow Rate 10 10 10 05/05/16 05/05/16 05/05/16 05/05/16 14:05 14:10 14:20 14:30 Pulse 70 75 5 B/P 108/77 123/58 113/64 Pulse Ox 98 98 94 92 O2 Delivery BiPAP/CPAP BiPAP/CPAP BiPAP/CPAP BiPAP/CPAP 05/05/16 05/05/16 05/05/16 05/05/16 14:40 14:50 14:55 15:00 Pulse 73 72 73 B/P 116/67 118/66 118/74 Pulse Ox 94 95 95 94 O2 Delivery BiPAP/CPAP BiPAP/CPAP BiPAP/CPAP BiPAP/CPAP 05/05/16 05/05/16 05/05/16 05/05/16 15:10 15:20 15:30 16:00 Temp 97.9 97.9 Pulse 75 75 75 78 Resp 20 B/P 117/75 115/71 116/71 115/67 Pulse Ox 93 93 94 92 O2 Delivery BiPAP/CPAP BiPAP/CPAP BiPAP/CPAP BiPAP/CPAP 05/05/16 05/05/16 05/05/16 05/05/16 16:00 17:00 17:00 18:00 Pulse 80 73 Resp 25 25 B/P 110/75 110/69 Pulse Ox 100 100 100 O2 Delivery Bi-pap BiPAP/CPAP BiPAP/CPAP BiPAP/CPAP 05/05/16 05/05/16 05/05/16 05/05/16 19:00 20:00 20:00 21:00 Temp 97.3 97.3 Pulse 76 78 83 Resp 20 16 18 B/P 90/58 99/63 88/65 Pulse Ox 100 100 100 O2 Delivery Nasal Cannula Nasal Cannula Nasal Cannula Nasal Cannula O2 Flow Rate 2.0 2.0 2.0 2.0 3/2/17 05/05/16 05/05/16 05/05/16 21:23 22:00 23:00 23:59 Pulse 86 91 Resp 16 10 17 B/P 70/50 80/52 Pulse Ox 100 99 98 O2 Delivery Nasal Cannula Nasal Cannula Nasal Cannula Nasal Cannula O2 Flow Rate 2.0 2.0 2.0 2.0 05/06/16 05/06/16 05/06/16 05/06/16 00:00 00:07 01:00 02:00 Temp 97.7 97.7 Pulse 94 95 94 Resp 20 22 16 15 B/P 101/58 85/61 87/58 Pulse Ox 97 96 95 93 O2 Delivery Nasal Cannula Nasal Cannula Nasal Cannula Nasal Cannula O2 Flow Rate 2.0 2.0 2.0 2.0 05/06/16 05/06/16 05/06/16 05/06/16 02:47 03:00 04:00 04:00 Temp 97.8 97.8 Pulse 95 97 Resp 25 16 B/P 78/56 69/57 Pulse Ox 90 90 95 O2 Delivery Nasal Cannula Nasal Cannula Nasal Cannula Nasal Cannula O2 Flow Rate 2.0 2.0 2.0 2.0 05/06/16 05/06/16 05/06/16 05/06/16 05:00 05:09 05:39 06:00 Pulse 98 96 Resp 14 19 16 15 B/P 78/58 78/51 Pulse Ox 99 97 98 93 O2 Delivery Nasal Cannula Nasal Cannula Nasal Cannula Nasal Cannula O2 Flow Rate 2.0 2.0 2.0 2.0 05/06/16 05/06/16 05/06/16 05/06/16 07:00 08:00 08:00 09:00 Temp 98.9 98.9 Pulse 98 100 102 Resp 25 18 19 B/P 83/52 73/56 84/48 Pulse Ox 96 96 96 O2 Delivery Nasal Cannula Nasal Cannula Nasal Cannula Nasal Cannula O2 Flow Rate 2.0 2.0 2.0 2.0 05/06/16 05/06/16 05/06/16 09:31 10:00 11:00 Pulse 102 104 Resp 16 23 19 B/P 66/45 71/52 Pulse Ox 97 98 98 O2 Delivery Nasal Cannula Nasal Cannula Nasal Cannula O2 Flow Rate 2.0 2.0 2.0 Intake and Output 05/05/16 05/05/16 05/06/16 15:00 23:00 07:00 Intake Total 500 ml Output Total 206 ml 84 ml Balance 500 ml -206 ml -84 ml AMITA THOMAS III DO May 06, 2016 11:28
--- NOTE | 2016-05-06 13:26 | PDOC2 ---
PALLIATIVE CARE Palliative Care Note Palliative Care Consult requested by DR. Montilla to address goals of care. Patient unresponsive to verbal stimuli Diagnosis: Respiratory failure, ETOH abuse--cirrhosis; elevated ammonia; portal hypertension, pancytopenia, encephalopathy. Spoke with Lori --sister. Discussed goals of care. Family wants comfort care. Arranged meeting for 1130 --no family came for meeting however Lori did speak to her mother--she does not want patient moved back to [facility]. Would do IP hospice [facility]. Keily TAPIA CM spoke with [facility]. They will not pay for IP Hospice. Their field support representative will check to see if IP Palliative Care at [place]. 1320 Patient's blood pressure declining 54/40's. Spoke with Lori. She is aware of the decline. Plan: Comfort Care. WERNER DELACRUZ May 06, 2016 13:26
[2016-05-07] VITALS (10 sets, daily range): BP systolic 64–85; BP diastolic 46–78
[2016-05-07] MEDS: LORAZEPAM 2 MG/ML VIAL IV PRN (08:20)
[2016-05-07] MEDS: MORPHINE SULFATE 2 MG/ML DISP.SYRIN. IV PRN ×2 (08:20→15:58)
--- NOTE | 2016-05-07 11:30 | PDOC ---
PROGRESS NOTES Chief Complaint Chief Complaint - Respiratory failure --ETOH Cirrhosis - Hyperammonemia - Portal hypertension - Pancytopenia - Encephalopathy History of Present Illness History of Present Illness Transfered out of ICU to 6th floor for comfort care on;y He seems close to Soft infrequent respirations Patient is unresponsive , has hyperammonemia encephalopathy, respiratory failure , family is at the bedside, plan of care is discussed with family member. Vitals Vitals Vital Signs Date Time Temp Pulse Resp B/P Pulse Ox O2 Delivery O2 Flow Rate FiO2 05/07/16 08:20 17 96 Nasal Cannula 2.0 05/07/16 08:00 98.6 101 74/48 98.6 Physical Exam Heart: Regular rate Lungs: Clear Abdomen: No tenderness, Other (+ascitese) Extremities: Other (2 =+ edema) Skin: Other (jaundiced) Labs LABS Laboratory Tests Test 05/06/16 12:25 Ammonia 120mcmol/L (11-34) Assessment and Plan Assessmemt and Plan Problems Medical Problems: (1) Respiratory failure Status: Acute - Respiratory failure --ETOH Cirrhosis - Hyperammonemia - Portal hypertension - Pancytopenia - Encephalopathy Plan Comfort care Problems: Comment Review of Relevant I have reviewed the following items berta (where applicable) has been applied. Labs Laboratory Tests Test 05/05/16 13:40 05/05/16 13:50 05/05/16 14:02 05/05/16 14:40 White Blood Count 10.1x10^3/uL (4.0-11.0) Red Blood Count 4.70x10^6/uL (4.30-5.70) Hemoglobin 13.6g/dL (13.0-17.5) Hematocrit 41.0% (39.0-53.0) Mean Corpuscular Volume 87fL (79-100) Mean Corpuscular Hemoglobin 29pg (25-35) Mean Corpuscular Hemoglobin Concent 33g/dL (31-37) Red Cell Distribution Width 16.4% (11.5-14.5) Platelet Count 129x10^3/uL (140-400) Neutrophils (%) (Auto) 85% (31-73) Lymphocytes (%) (Auto) 5% (24-48) Monocytes (%) (Auto) 10% (0-9) Eosinophils (%) (Auto) 0% (0-3) Basophils (%) (Auto) 0% (0-3) Neutrophils # (Auto) 8.6x10^3uL (1.8-7.7) Lymphocytes # (Auto) 0.5x10^3/uL (1.0-4.8) Monocytes # (Auto) 1.0x10^3/uL (0.0-1.1) Eosinophils # (Auto) 0.0x10^3/uL (0.0-0.7) Basophils # (Auto) 0.0x10^3/uL (0.0-0.2) Segmented Neutrophils % 77% (35-66) Band Neutrophils % 9% (0-9) Lymphocytes % 8% (24-48) Monocytes % 6% (0-10) Toxic Granulation Slight Platelet Estimate Adequate (ADEQUATE) Poikilocytosis Marked Anisocytosis Slight Ovalocytes Few João Cells Mod Schistocytes Mod RBC Morphology Bizarre Forms Few Prothrombin Time 19.1SEC (11.7-14.0) Prothromb Time International Ratio 1.7 (0.8-1.1) Magnesium Level 1.8mg/dL (1.8-2.4) Total Bilirubin 4.0mg/dL (0.2-1.0) Direct Bilirubin 1.4mg/dL (0.0-0.2) Aspartate Amino Transf (AST/SGOT) 162U/L (15-37) Alanine Aminotransferase (ALT/SGPT) 36U/L (16-63) Alkaline Phosphatase 222U/L (46-116) Ammonia 349mcmol/L (11-34) Creatine Kinase 103U/L (39-308) Creatine Kinase MB (Mass) 1.5ng/mL (0.0-3.6) Creatine Kinase MB Relative Index 1.5% (0-4) Troponin I Quantitative < 0.017ng/mL (0.000-0.055) WM-Xcb-F-Type Natriuretic Peptide 111pg/mL (0-124) Total Protein 6.6g/dL (6.4-8.2) Albumin 2.1g/dL (3.4-5.0) Lipase 55U/L (73-393) Sodium Level 130mmol/L (136-145) Potassium Level 5.4mmol/L (3.5-5.1) Chloride Level 94mmol/L (98-107) Carbon Dioxide Level 25mmol/L (21-32) Anion Gap 11 (6-14) Blood Urea Nitrogen 30mg/dL (8-26) Creatinine 0.8mg/dL (0.7-1.3) Estimated GFR (Cockcroft-Gault) 118.5 Glucose Level 116mg/dL (70-99) Calcium Level 9.3mg/dL (8.5-10.1) Urine Collection Type Unknown Urine Color Jayda Urine Clarity Clear Urine pH 6.0 Urine Specific [place] 1.020 Urine Protein Negativemg/dL (NEG-TRACE) Urine Glucose (UA) Negativemg/dL (NEG) Urine Ketones (Stick) Tracemg/dL (NEG) Urine Blood Negative (NEG) Urine Nitrite Negative (NEG) Urine Bilirubin Moderate (NEG) Urine Urobilinogen Dipstick >=8.0mg/dL (0.2 mg/dL) Urine Leukocyte Esterase Trace (NEG) Urine RBC 0/HPF (0-2) Urine WBC 0/HPF (0-4) Urine Bacteria 0/HPF (0-FEW) Urine Hyaline Casts Moderate/HPF Urine Mucus Mod/LPF O2 Saturation 96% (92-99) Arterial Blood pH 7.51 (7.35-7.45) Arterial Blood pCO2 at Patient Temp 32mmHg (35-46) Arterial Blood pO2 at Patient Temp 79mmHg (65-108) Arterial Blood HCO3 25mmol/L (21-28) Arterial Blood Base Excess 2mmol/L (-3-3) FiO2 60 Test 05/05/16 17:00 05/06/16 04:45 05/06/16 12:25 Nasal Screen MRSA (PCR) Positive (Negative) White Blood Count 10.6x10^3/uL (4.0-11.0) Red Blood Count 4.46x10^6/uL (4.30-5.70) Hemoglobin 12.9g/dL (13.0-17.5) Hematocrit 39.1% (39.0-53.0) Mean Corpuscular Volume 88fL (79-100) Mean Corpuscular Hemoglobin 29pg (25-35) Mean Corpuscular Hemoglobin Concent 33g/dL (31-37) Red Cell Distribution Width 16.5% (11.5-14.5) Platelet Count 99x10^3/uL (140-400) Neutrophils (%) (Auto) 85% (31-73) Lymphocytes (%) (Auto) 5% (24-48) Monocytes (%) (Auto) 9% (0-9) Eosinophils (%) (Auto) 0% (0-3) Basophils (%) (Auto) 0% (0-3) Neutrophils # (Auto) 9.1x10^3uL (1.8-7.7) Lymphocytes # (Auto) 0.5x10^3/uL (1.0-4.8) Monocytes # (Auto) 1.0x10^3/uL (0.0-1.1) Eosinophils # (Auto) 0.0x10^3/uL (0.0-0.7) Basophils # (Auto) 0.0x10^3/uL (0.0-0.2) Sodium Level 134mmol/L (136-145) Potassium Level 5.1mmol/L (3.5-5.1) Chloride Level 99mmol/L (98-107) Carbon Dioxide Level 29mmol/L (21-32) Anion Gap 6 (6-14) Blood Urea Nitrogen 39mg/dL (8-26) Creatinine 1.3mg/dL (0.7-1.3) Estimated GFR (Cockcroft-Gault) 67.7 Glucose Level 114mg/dL (70-99) Calcium Level 9.2mg/dL (8.5-10.1) Ammonia 120mcmol/L (11-34) Laboratory Tests Test 05/06/16 12:25 Ammonia 120mcmol/L (11-34) Microbiology 05/05/16 Urine Culture - Preliminary, Resulted 05/05/16 Urine Culture Result 1 (MAIRA) - Preliminary, Resulted Medications Current Medications Sodium Chloride (Iv Sodium Chloride 0.9% 1000ml Bag) 500 ml @ 1,000 mls/hr 1X ONCE IV Last administered on 05/05/16 14:02; Start 05/05/16 at 14:00; Stop at 18:36; Status DC Ondansetron HCl (Zofran) 4 mg 1X ONCE IV Last administered on 05/05/16 14:04; Start 05/05/16 at 14:00; Stop 05/05/16 at 18:36; Status DC Lactulose 30 gm 1X STAT PO ; Start 05/05/16 at 14:45; Stop 05/05/16 at 18:37; Status DC Ondansetron HCl 4 mg 4 mg PRN Q8HRS PRN IV NAUSEA/VOMITING; Start 05/05/16 at 15 :00; Stop 05/06/16 at 14:59; Status DC Ceftriaxone Sodium 50 ml @ 100 mls/hr 1X ONCE IV ; Start 05/05/16 at 15:15; Stop 05/05/16 at 18:37; Status DC Amino Acids/ Electrolytes/ Dextrose (Clinimix E 4.25%-5% Solution) 1,000 ml @ 80 mls/hr [id number] PRN IV .; Start 05/05/16 at 17:30; Stop 05/05/16 at 18:37; Status DC Morphine Sulfate 2 mg PRN Q2HR PRN IV PAIN Last administered on 05/07/16 08:20 ; Start 05/05/16 at 18:45 Lorazepam (Ativan) 2 mg PRN Q4HRS PRN IV ANXIETY / AGITATION Last administered on 05/07/16 08:20; Start 05/05/16 at 18:45 Active Scripts Active Oxycodone Hcl 5 Mg Tablet 10 Mg PO PRN Q4HRS PRN Morphine Sulfate Er (Morphine Sulfate) 30 Mg Tablet.er 30 Mg PO BID Lactulose 20 Gm/30 Ml Solution 20 Gm PO BID 30 Days Cyclobenzaprine Hcl 10 Mg Tablet 10 Mg PO PRN Q6HRS PRN Reported Spironolactone 25 Mg Tablet 2 Tab PO DAILY Propranolol Hcl 10 Mg Tablet 1 Tab PO BID Multivitamins (Multivitamin) 1 Each Tablet 1 Tab PO DAILY Magnesium Oxide 400 Mg Tablet 2 Tab PO BID Lidoderm (Lidocaine) 700 Mg Adh..patch 1 Patch TP DAILY Furosemide 20 Mg Tablet 1 Tab PO DAILY Ferrous Sulfate 325 Mg Tablet 1 Tab PO DAILY Docusate Sodium 100 Mg Capsule 2 Cap PO PRN BID PRN Vitamin D3 (Cholecalciferol (Vitamin D3)) 1,000 Unit Tablet 1 Tab PO DAILY Vitals/I & O Vital Sign - Last 24 Hours 05/06/16 05/06/16 05/06/16 05/06/16 12:00 12:00 16:00 19:35 Temp 98.9 98.9 Pulse 107 104 108 Resp 18 B/P 63/50 74/55 70/47 Pulse Ox 98 99 96 O2 Delivery Nasal Cannula Nasal Cannula Nasal Cannula Nasal Cannula O2 Flow Rate 2.0 2.0 2.0 2.0 05/06/16 05/06/16 05/06/16 05/06/16 20:00 20:30 21:30 22:19 Temp 98.7 98.7 Pulse 110 112 Resp B/P 77/51 72/47 Pulse Ox 96 95 96 O2 Delivery Nasal Cannula Nasal Cannula Nasal Cannula Nasal Cannula O2 Flow Rate 2.0 2.0 2.0 2.0 05/06/16 05/06/16 05/06/16 05/07/16 22:30 23:00 23:30 00:01 Temp 98.4 98.4 Pulse 110 110 110 Resp 33 32 22 B/P 70/52 70/53 78/50 Pulse Ox 96 96 97 96 O2 Delivery Nasal Cannula Nasal Cannula Nasal Cannula Nasal Cannula O2 Flow Rate 2.0 2.0 2.0 2.0 05/07/16 05/07/16 05/07/16 05/07/16 01:30 02:30 03:37 06:40 Temp 98.8 98.8 Pulse 110 111 111 113 Resp B/P 70/53 64/49 66/47 72/50 Pulse Ox 97 96 98 98 O2 Delivery Nasal Cannula Nasal Cannula Nasal Cannula Nasal Cannula O2 Flow Rate 2.0 2.0 2.0 2.0 05/07/16 05/07/16 05/07/16 08:00 08:00 08:20 Temp 98.6 98.6 Pulse 101 Resp 17 B/P 74/48 Pulse Ox 96 96 O2 Delivery Nasal Cannula Nasal Cannula Nasal Cannula O2 Flow Rate 2.0 2.0 2.0 Intake and Output 05/06/16 05/06/16 05/07/16 15:00 23:00 07:00 Output Total 110 ml 50 ml Balance -110 ml -50 ml AMITA THOMAS K III DO May 07, 2016 11:30
[2016-05-08 03:00] VITALS: BP 82/44
[2016-05-08] MEDS: MORPHINE SULFATE 2 MG/ML DISP.SYRIN. IV PRN ×6 (07:13→20:03)
[2016-05-08 07:36] VITALS: BP 90/48
[2016-05-08 12:10] VITALS: BP 76/43
--- NOTE | 2016-05-08 13:06 | PDOC ---
PROGRESS NOTES Chief Complaint Chief Complaint - Respiratory failure --ETOH Cirrhosis - Hyperammonemia - Portal hypertension - Pancytopenia - Encephalopathy History of Present Illness History of Present Illness Transfered out of ICU to 6th floor yesterday for comfort care only He still seems close to Soft infrequent respirations Moans a little Patient is unresponsive , has hyperammonemia encephalopathy, respiratory failure. Will cont comfort measures Vitals Vitals Vital Signs Date Time Temp Pulse Resp B/P Pulse Ox O2 Delivery O2 Flow Rate FiO2 05/08/16 12:10 114 14 76/43 75 Nasal Cannula 2.0 05/08/16 03:00 97.9 97.9 Physical Exam Heart: Regular rate Lungs: Clear Abdomen: No tenderness, Other (+ascitese) Extremities: Other (2 =+ edema) Skin: Other (jaundiced) Assessment and Plan Assessmemt and Plan Problems Medical Problems: (1) Respiratory failure Status: Acute - Respiratory failure --ETOH Cirrhosis - Hyperammonemia - Portal hypertension - Pancytopenia - Encephalopathy Plan Comfort care Prog Terminal. Problems: Comment Review of Relevant I have reviewed the following items berta (where applicable) has been applied. Labs Microbiology 05/05/16 Urine Culture - Final, Complete 05/05/16 Urine Culture Result 1 (MAIRA) - Final, Complete Medications Current Medications Sodium Chloride (Iv Sodium Chloride 0.9% 1000ml Bag) 500 ml @ 1,000 mls/hr 1X ONCE IV Last administered on 05/05/16 14:02; Start 05/05/16 at 14:00; Stop at 18:36; Status DC Ondansetron HCl (Zofran) 4 mg 1X ONCE IV Last administered on 05/05/16 14:04; Start 05/05/16 at 14:00; Stop 05/05/16 at 18:36; Status DC Lactulose 30 gm 1X STAT PO ; Start 05/05/16 at 14:45; Stop 05/05/16 at 18:37; Status DC Ondansetron HCl 4 mg 4 mg PRN Q8HRS PRN IV NAUSEA/VOMITING; Start 05/05/16 at 15 :00; Stop 05/06/16 at 14:59; Status DC Ceftriaxone Sodium 50 ml @ 100 mls/hr 1X ONCE IV ; Start 05/05/16 at 15:15; Stop 05/05/16 at 18:37; Status DC Amino Acids/ Electrolytes/ Dextrose (Clinimix E 4.25%-5% Solution) 1,000 ml @ 80 mls/hr [id number] PRN IV .; Start 05/05/16 at 17:30; Stop 05/05/16 at 18:37; Status DC Morphine Sulfate 2 mg PRN Q2HR PRN IV PAIN Last administered on 05/08/16 12:03 ; Start 05/05/16 at 18:45 Lorazepam (Ativan) 2 mg PRN Q4HRS PRN IV ANXIETY / AGITATION Last administered on 05/07/16 08:20; Start 05/05/16 at 18:45 Active Scripts Active Oxycodone Hcl 5 Mg Tablet 10 Mg PO PRN Q4HRS PRN Morphine Sulfate Er (Morphine Sulfate) 30 Mg Tablet.er 30 Mg PO BID Lactulose 20 Gm/30 Ml Solution 20 Gm PO BID 30 Days Cyclobenzaprine Hcl 10 Mg Tablet 10 Mg PO PRN Q6HRS PRN Reported Spironolactone 25 Mg Tablet 2 Tab PO DAILY Propranolol Hcl 10 Mg Tablet 1 Tab PO BID Multivitamins (Multivitamin) 1 Each Tablet 1 Tab PO DAILY Magnesium Oxide 400 Mg Tablet 2 Tab PO BID Lidoderm (Lidocaine) 700 Mg Adh..patch 1 Patch TP DAILY Furosemide 20 Mg Tablet 1 Tab PO DAILY Ferrous Sulfate 325 Mg Tablet 1 Tab PO DAILY Docusate Sodium 100 Mg Capsule 2 Cap PO PRN BID PRN Vitamin D3 (Cholecalciferol (Vitamin D3)) 1,000 Unit Tablet 1 Tab PO DAILY Vitals/I & O Vital Sign - Last 24 Hours 05/07/16 05/07/16 05/07/16 05/07/16 15:58 16:00 16:28 19:00 Temp 98.0 97.5 98.0 97.5 Pulse 93 97 Resp 14 14 16 B/P 73/46 75/47 Pulse Ox 88 3 87 O2 Delivery Nasal Cannula Nasal Cannula Nasal Cannula Nasal Cannula O2 Flow Rate 2.0 2.0 2.0 05/07/16 05/07/16 05/08/16 05/08/16 20:00 23:00 03:00 07:13 Temp 98.1 97.9 98.1 97.9 Pulse 104 107 Resp 16 16 B/P 85/50 82/44 Pulse Ox 82 80 80 O2 Delivery Nasal Cannula Nasal Cannula Nasal Cannula Nasal Cannula O2 Flow Rate 2.0 2.0 2.0 2.0 05/08/16 05/08/16 05/08/16 05/08/16 07:36 08:00 09:32 11:58 Pulse 111 Resp 16 24 20 B/P 90/48 Pulse Ox 61 O2 Delivery Nasal Cannula Nasal Cannula Nasal Cannula Nasal Cannula O2 Flow Rate 2.0 2.0 3.0 05/08/16 05/08/16 12:03 12:10 Pulse 114 Resp 14 B/P 76/43 Pulse Ox 61 75 O2 Delivery Nasal Cannula Nasal Cannula O2 Flow Rate 3.0 2.0 Intake and Output 05/07/16 05/07/16 05/08/16 15:00 23:00 07:00 Intake Total 0 ml 0 ml 0 ml Output Total 175 ml 350 ml Balance 0 ml -175 ml -350 ml AMITA THOMAS III DO May 08, 2016 13:06
[2016-05-08 15:52] VITALS: BP 75/42
[2016-05-08 19:54] VITALS: BP 88/56
[2016-05-08 23:18] VITALS: BP 88/53
[2016-05-09] MEDS: MORPHINE SULFATE 2 MG/ML DISP.SYRIN. IV PRN ×5 (01:13→16:28)
[2016-05-09 03:39] VITALS: BP 91/51
[2016-05-09 08:00] VITALS: BP 98/53
[2016-05-09 10:50] VITALS: BP 89/56
--- NOTE | 2016-05-09 13:48 | PDOC ---
PROGRESS NOTES Chief Complaint Chief Complaint - Respiratory failure --ETOH Cirrhosis - Hyperammonemia - Portal hypertension - Pancytopenia - Encephalopathy comfort care morphine as needed DNR/DNI History of Present Illness History of Present Illness Transfered out of ICU to 6th floor yesterday for comfort care only He still seems close to Soft infrequent respirations Moans a little Patient is unresponsive , has hyperammonemia encephalopathy, respiratory failure. Will cont comfort measures PAT talked to family, who refused pt to go to a hospice facility since they cannot visit him. will pull out NC, morphine as needed. Vitals Vitals Vital Signs Date Time Temp Pulse Resp B/P Pulse Ox O2 Delivery O2 Flow Rate FiO2 05/09/16 13:13 Nasal Cannula 2.0 05/09/16 10:50 131 14 89/56 80 05/09/16 03:39 97.9 97.9 Physical Exam Heart: Regular rate Lungs: Clear Abdomen: No tenderness, Other (+ascitese) Extremities: Other (2 =+ edema) Skin: Other (jaundiced) Review of Systems Review of Systems no fever, chills, sob or chest pain Assessment and Plan Assessmemt and Plan Problems Medical Problems: (1) Respiratory failure Status: Acute Problems: Comment Review of Relevant I have reviewed the following items berta (where applicable) has been applied. Labs Microbiology 05/05/16 Urine Culture - Final, Complete 05/05/16 Urine Culture Result 1 (MAIRA) - Final, Complete Medications Current Medications Sodium Chloride (Iv Sodium Chloride 0.9% 1000ml Bag) 500 ml @ 1,000 mls/hr 1X ONCE IV Last administered on 05/05/16 14:02; Start 05/05/16 at 14:00; Stop at 18:36; Status DC Ondansetron HCl (Zofran) 4 mg 1X ONCE IV Last administered on 05/05/16 14:04; Start 05/05/16 at 14:00; Stop 05/05/16 at 18:36; Status DC Lactulose 30 gm 1X STAT PO ; Start 05/05/16 at 14:45; Stop 05/05/16 at 18:37; Status DC Ondansetron HCl 4 mg 4 mg PRN Q8HRS PRN IV NAUSEA/VOMITING; Start 05/05/16 at 15 :00; Stop 05/06/16 at 14:59; Status DC Ceftriaxone Sodium 50 ml @ 100 mls/hr 1X ONCE IV ; Start 05/05/16 at 15:15; Stop 05/05/16 at 18:37; Status DC Amino Acids/ Electrolytes/ Dextrose (Clinimix E 4.25%-5% Solution) 1,000 ml @ 80 mls/hr [id number] PRN IV .; Start 05/05/16 at 17:30; Stop 05/05/16 at 18:37; Status DC Morphine Sulfate 2 mg PRN Q2HR PRN IV PAIN Last administered on 05/09/16 12:40 ; Start 05/05/16 at 18:45 Lorazepam (Ativan) 2 mg PRN Q4HRS PRN IV ANXIETY / AGITATION Last administered on 05/07/16 08:20; Start 05/05/16 at 18:45 Active Scripts Active Oxycodone Hcl 5 Mg Tablet 10 Mg PO PRN Q4HRS PRN Morphine Sulfate Er (Morphine Sulfate) 30 Mg Tablet.er 30 Mg PO BID Lactulose 20 Gm/30 Ml Solution 20 Gm PO BID 30 Days Cyclobenzaprine Hcl 10 Mg Tablet 10 Mg PO PRN Q6HRS PRN Reported Spironolactone 25 Mg Tablet 2 Tab PO DAILY Propranolol Hcl 10 Mg Tablet 1 Tab PO BID Multivitamins (Multivitamin) 1 Each Tablet 1 Tab PO DAILY Magnesium Oxide 400 Mg Tablet 2 Tab PO BID Lidoderm (Lidocaine) 700 Mg Adh..patch 1 Patch TP DAILY Furosemide 20 Mg Tablet 1 Tab PO DAILY Ferrous Sulfate 325 Mg Tablet 1 Tab PO DAILY Docusate Sodium 100 Mg Capsule 2 Cap PO PRN BID PRN Vitamin D3 (Cholecalciferol (Vitamin D3)) 1,000 Unit Tablet 1 Tab PO DAILY Vitals/I & O Vital Sign - Last 24 Hours 05/08/16 05/08/16 05/08/16 05/08/16 15:43 15:52 19:54 20:00 Temp 97.9 97.9 Pulse 112 85 Resp 14 16 B/P 75/42 88/56 Pulse Ox 75 83 85 O2 Delivery Nasal Cannula Nasal Cannula Nasal Cannula Nasal Cannula O2 Flow Rate 2.0 2.0 2.0 2.0 05/08/16 05/08/16 05/09/16 05/09/16 20:03 23:18 01:13 01:43 Temp 99.1 99.1 Pulse 87 Resp 15 22 20 B/P 88/53 Pulse Ox 87 87 87 O2 Delivery Nasal Cannula Nasal Cannula Nasal Cannula O2 Flow Rate 2.0 2.0 05/09/16 05/09/16 05/09/16 05/09/16 03:39 07:45 08:00 08:10 Temp 97.9 97.9 Pulse 121 124 Resp 22 14 B/P 91/51 98/53 Pulse Ox 85 80 O2 Delivery Nasal Cannula Nasal Cannula Nasal Cannula Nasal Cannula O2 Flow Rate 2.0 3.0 2.0 3.0 05/09/16 05/09/16 05/09/16 10:50 12:40 13:13 Pulse 131 Resp 14 B/P 89/56 Pulse Ox 80 O2 Delivery Nasal Cannula Simple Mask Nasal Cannula O2 Flow Rate 2.0 2.0 2.0 Intake and Output 05/08/16 05/08/16 05/09/16 15:00 23:00 07:00 Intake Total 0 ml Output Total 250 ml 375 ml Balance -250 ml -375 ml FREDDY BARRERA MD May 09, 2016 13:48
[2016-05-09 15:00] VITALS: BP 96/52
--- NOTE | 2016-05-09 17:27 | PDOC2 ---
PALLIATIVE CARE Palliative Care Note Palliative Care Patient remains unresponsive. Respiratory distress Met with patient's sister Jayson; and patient's mother's per phone. They would like to have the oxygen discontinued --they feel this is prolonging his dying. Spoke with Dr Haji regarding family wishes. Morphine given respiratory distress ; 2mg x 6 doses to day. If patient moves to [place]ustodial in [place] family will not be able to visit him--no bus service. [facility] will not pay of IP Hospice. Plan; Continue to treat symptoms; Allow natural . WERNER DELACRUZ May 09, 2016 17:27
--- NOTE | 2016-05-09 18:38 | PDOC3 ---
Discharge Summary [facility] Date of Admission: May 05, 2016 Discharge Date: May 09, 2016 Admitting Diagnosis Respiratory failure --ETOH Cirrhosis - Hyperammonemia - Portal hypertension - Pancytopenia - Encephalopathy 2/2 cirrhosis Problems: Final Diagnosis Problems Medical Problems: (1) Respiratory failure Status: Acute CONSULTS pulm Brief Hospital Course Mr. Pickering is a 61 old M, was sent from SNF for AMS. pt was in SNF for hospice with cirrhosis. he was found hyperammonemia. Pt was then unresponsive, PAT consulted, family agreed to have comfort care. Pt today with apnea. Problems: CONDITION AT DISCHARGE: / Scheduled Cholecalciferol (Vitamin D3) (Vitamin D3) 1 TAB PO DAILY (Reported) Ferrous Sulfate (Ferrous Sulfate) 1 TAB PO DAILY (Reported) Furosemide (Furosemide) 1 TAB PO DAILY (Reported) Lactulose (Lactulose) 20 GM PO BID Lidocaine (Lidoderm) 1 PATCH TP DAILY (Reported) Magnesium Oxide (Magnesium Oxide) 2 TAB PO BID (Reported) Morphine Sulfate (Morphine Sulfate Er) 30 MG PO BID Multivitamin (Multivitamins) 1 TAB PO DAILY (Reported) Propranolol Hcl (Propranolol Hcl) 1 TAB PO BID (Reported) Spironolactone (Spironolactone) 2 TAB PO DAILY (Reported) Scheduled PRN Cyclobenzaprine Hcl (Cyclobenzaprine Hcl) 10 MG PO PRN Q6HRS PRN PRN MUSCLE SPASMS Docusate Sodium (Docusate Sodium) 2 CAP PO PRN BID PRN PRN CONSTIPATION ( Reported) Oxycodone Hcl (Oxycodone Hcl) 10 MG PO PRN Q4HRS PRN PRN BREAKTHROUGH PAIN FREDDY BARRERA MD May 09, 2016 18:38
[2016-05-09] MEDS ORDERED: MORPHINE SULFATE 2 MG/ML DISP.SYRIN. IV PRN (18:45)
== END 2016-05-09 23:13 | disposition expired | DRG 432 ==
LOC: ER 13:31 → 1 WEST ICU 15:19 → 5 NORTH 05-07 08:52
PROVIDERS: ADMIT Internal Medicine; ATTEND Internal Medicine
PROC: 5A09357 Assistance with Respiratory Ventilation, Less than 24 Consecutive Hours, Continuous Positive Airway Pressure (ICD-10-PCS; principal; 2016-05-05)
DX: K70.40 Alcoholic hepatic failure without coma (principal); E43 Unspecified severe protein-calorie malnutrition; J96.01 Acute respiratory failure with hypoxia; D61.818 Other pancytopenia; I85.10 Secondary esophageal varices without bleeding; K76.6 Portal hypertension; K70.31 Alcoholic cirrhosis of liver with ascites; F10.10 Alcohol abuse, uncomplicated; I10 Essential (primary) hypertension; Z51.5 Encounter for palliative care; Z66 Do not resuscitate; Z86.19 Personal history of other infectious and parasitic diseases; Z68.21 Body mass index [BMI] 21.0-21.9, adult
CPT/HCPCS: 36415; 36600; 51702; 71010; 74000; 80048; 80076; 81001; 82140; 82553; 82805; 83690; 83735; 83880; 84484; 85007; 85027; 85610; 87086; 87641; 93005; 94660; 96374; J2060; J2270; J2405; J7030; 99291-25